=== PATIENT | female | born 1960 | race Caucasian/White ===

== ENCOUNTER 2019-11-05 08:29 | Emergency (ER) | payer OTHER, SELFPAY ==
--- NOTE | ~2019-11-05 | XR_ITS ---
XR foot LT min 3V DATE: 11/05/2019 08:50 INDICATION: Hyperflexion injury. Proximal lateral metatarsal area pain TECHNIQUE: 4 views COMPARISON: None FINDINGS: There is mild osteoarthritis at the first metatarsophalangeal joint. There may be a small subtle cortical avulsion fracture of the distal lateral aspect of the calcaneus. Otherwise no fracture or dislocation, periosteal reaction or bone destruction is evident. There is posterior calcaneal enthesopathy. IMPRESSION: Possible subtle very small cortical avulsion fracture at the distal lateral aspect of the calcaneus Posterior calcaneal enthesopathy Osteoarthritis at first metatarsophalangeal joint Reviewed, dictated and finalized at location A.
[2019-11-05 08:37] VITALS: BP 125/70; PULSE 84; RESP 16; TEMP 37.3; O2SAT 98
--- NOTE | 2019-11-05 08:48 | ED.GENADULT ---
HPI - General Adult General Chief complaint: Extremity Injury, Lower Stated complaint: left foot injury Time Seen by Provider: 11/05/19 08:48 Source: patient and RN notes reviewed Limitations: no limitations History of Present Illness HPI narrative: 59-year-old female presents with complaints of left heel and dorsal-lateral foot pain and swelling for 1 day. No treatment. Yasemin says she was stepping off her deck into a indentation and fell causing injury to LT foot. Hurts to bear weight. No radiation of pain. No numbness, tingling, or loss of mobility. Exacerbating factor applying weight. Denies inability to bear weight. Denies discoloration. Denies suspect foreign body. Denies fever or chills. The patient reports she have not been diagnosed with COVID-19. The patient reports she is not waiting for the results of a COVID-19 lab test. The patient reports she do not have fever, chills, weakness, fatigue, or myalgia. The patient reports she do not have a new or worsening cough or shortness of breath. Denies chest pain. The patient reports she do not have any rhinorrhea, congestion, sore throat, nausea, vomiting, abdominal pain, and diarrhea. Tolerating po intake well. Denies recent traveling. Denies concerns for COVID-19 or exposures been home since [id number] order except for essential household needs, working, and return home. At this time, patient is not suspected of having COVID-19. Some parts of this dictation were generated by voice recognition software and may contain typographical and/or grammatical inaccuracies. Related Data Home Medications Medication Instructions Recorded Confirmed estradiol 1 patch TOPICAL 2XW 11/05/19 11/05/19 progesterone micronized 100 mg PO EVERY OTHER DAY 11/05/19 11/05/19 zolpidem 5 mg PO HS PRN 11/05/19 11/05/19 Allergies Allergy/AdvReac Type Severity Reaction Status Date / Time No Known Allergies Allergy Unverified 11/05/19 08:46 Review of Systems Review of Systems: Narrative: CONSTITUTIONAL: Denies fever, chills, sweats. EYES: Denies visual changes, redness, discharge. ENT: Denies rhinorrhea, congestion, sore throat, otalgia. CARDIOVASCULAR: Denies chest pain, palpitations, edema. RESPIRATORY: Denies dyspnea, wheezing, cough. GASTROINTESTINAL: Denies abdominal pain, nausea, vomiting, diarrhea. GENITOURINARY: Denies dysuria, hematuria, abnormal discharge. SKIN: Denies rash or itching. MUSCULOSKELETAL: Denies acute back pain or myalgia. Complains of left heel and dorsal-lateral foot pain and swelling. NEUROLOGIC: Denies numbness or focal weakness. PSYCHIATRIC: Denies anxiety or depression. [facility] Past Medical History Medical History (Updated 11/06/19 @ 00:00 by Mitchel Santos) Asthma Endometriosis Surgical History Surgical History (Updated 11/05/19 @ 09:35 by SAPNA Gonzalez) History of dental surgery Family History Family History (Updated 11/05/19 @ 09:35 by SAPNA Gonzalez) Father Hypertension Mother Alive and well Social History Social History (Updated 11/05/19 @ 09:36 by SAPNA Gonzalez) Smoking status: Former smoker Second hand tobacco smoke exposure: No Smoking end date: 05/31/99 Alcohol intake: current Substance use: never Living arrangements: with family Occupation/Education: occupation Gender identity (if verbalized by the patient): Female Comments At time of signature, agree with nurse past medical, surgical, social, and family history. There is no relevant family history pertinent to the presenting complaint. Exam Narrative: Exam Narrative: GENERAL: This is a well-nourished, well-developed patient, in no apparent distress. Ambulates with a limp favoring left lower extremity, avoiding putting pressure to LT heel. HEAD: normocephalic, atraumatic. EYES: PERRL. Sclera clear/white. Vision is grossly intact. CARDIOVASCULAR: Regular rate and rhythm without murmurs, gallops, or rubs
--- NOTE | 2019-11-05 08:50 | PC.NURSE ---
PT DECLINED WHEELCHAIR TO ROOM AND RADIOLOGY
== END 2019-11-05 10:25 | disposition home or self-care (01) ==
PROVIDERS: Emergency Provider Nurse Practitioner Family
DX: S92.902A Unspecified fracture of left foot, initial encounter for closed fracture (principal); X58.XXXA Exposure to other specified factors, initial encounter
CPT/HCPCS: 29515; 73630; 99214; G0463